=== PATIENT | female | born 1945 | race Caucasian/White ===

== ENCOUNTER 2021-04-22 07:19 | Emergency (ER) | payer OTHER ==
[~2021-04-22] VITALS: Ht 157.5 cm; Wt 54.9 kg
[2021-04-22] MEDS ORDERED: COREG (07:49)
[2021-04-22] MEDS ORDERED: CLONIDINE (07:49)
[2021-04-22] MEDS ORDERED: WELLBUTRIN (07:50)
[2021-04-22] MEDS ORDERED: CENTRUM ADULTS1 EACH PO (07:50)
[2021-04-22] MEDS ORDERED: ARICEPT10 M1 PO (07:50)
[2021-04-22] MEDS ORDERED: ZETIA10 MG PO (07:50)
[2021-04-22] MEDS ORDERED: AREDS (07:51)
[2021-04-22] MEDS ORDERED: VITAMIN B12 (07:51)
[2021-04-22 09:42] VITALS: BP 145/70
== END 2021-04-22 09:51 | disposition short-term general hospital (02) ==
LOC: M.ERS 07:19
DX: S12.000A Unspecified displaced fracture of first cervical vertebra, initial encounter for closed fracture (principal); M25.561 Pain in right knee; M25.571 Pain in right ankle and joints of right foot; Z88.1 Allergy status to other antibiotic agents; Z88.2 Allergy status to sulfonamides; Z88.8 Allergy status to other drugs, medicaments and biological substances; Z88.6 Allergy status to analgesic agent; W18.39XA Other fall on same level, initial encounter; Y93.89 Activity, other specified; Y92.89 Other specified places as the place of occurrence of the external cause; Y99.8 Other external cause status